=== PATIENT | male | born 1990 | race Hispanic/Latino ===

== ENCOUNTER 2018-01-12 21:03 | Emergency (ER) | payer SELFPAY ==
[2018-01-12 21:04] VITALS: BP 110/56; PULSE 102; RESP 20; TEMP 36.6; O2SAT 99; BMI 23.3
[2018-01-12] MEDS: Ondansetron 4 MG/2 ML Vial IV (21:48)
[2018-01-12] MEDS: 0.9% Normal Saline 1,000 ML 1000 ML IV (21:48)
[2018-01-12] MEDS: Dicyclomine 20 MG/2 ML Vial IM (21:48)
[2018-01-12 21:56] LABS: Absolute Lymphocyte Count 1.36 X10^3/ul (0.83-4.51); Absolute Neutrophil Count 10.8 X10^3/uL (2.0-7.7); Basophil# 0.02 X10^3/uL; Basophil% 0.2 % (0-1); Eosinophil# 0.05 X10^3/uL; Eosinophils% 0.4 % (0-5); Hematocrit 46.6 % (40-54); Hemoglobin 14.9 g/dl (13.0-16.5); Lymphocyte # 1.36 X10^3/ul (4.0); Lymphocyte % 10.5 % (19-41); Mean Corpuscular Volume 84.6 fL (80-94); Mean Platelet Vol. 10.1 fl (6.2-12.0); Monocyte# 0.76 X10^3/uL; Monocyte% 5.9 % (0-10); Neutrophil # 10.78 X10^3/uL (2.7-7.7); Neutrophil % 82.8 % (47-70); POSITIVE COUNT NO; POSITIVE DIFFERENTIAL NO; POSITIVE MORPHOLOGY NO; Platelet Count 239 K/mm3 (150-450); RBC Distribution Width CV 12.8 % (11.6-14.6); RBC Distribution Width SD 39.5 fl (35.1-43.9); Red Blood Count 5.51 M/mm3 (4.6-6.2)
[2018-01-12 22:04] LABS: Anion Gap 7 (5-15); BUN 10 mg/dL (7-18); BUN/Creat Ratio 9.8 RATIO (10-20); Calcium,Total 9.1 mg/dL (8.5-10.1); Chloride 105 mmol/L (98-107); Creatinine, Serum 1.02 mg/dL (0.70-1.30); EST Glomerular Filtration Rate 93 mL/min (>60); Est Glom Filt Rate - Afr Amer 113 mL/min (>60); Estimated Creatinine Clearance 94.63 ml/min; Glucose 122 mg/dL (74-106); Potassium 4.1 mmol/L (3.5-5.1); Sodium Level 141 mmol/L (136-145)
--- NOTE | 2018-01-12 22:50 | ED.VISSUMM ---
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 An hour after this exposure he developed nausea, vomiting, and diarrhea. Denies any abdominal pain. He has no throat pain. He has no respiratory symptoms. Patient has a picture of the bottle simply states acid cutlery grinder on it. The active ingredients are listed as decanoic acid, nonanoic acid, phosphoric acid, sulfuric acid, propionic acid. Physical Examination: Vital signs are unremarkable. Patient sitting in a bedside stool. He is no acute distress. Head neck examination is unremarkable. I do not appreciate any oral lesions. Heart is regular rate and rhythm. Lung sounds are clear. Abdomen is soft and nontender. Hypoactive bowel sounds are noted. Test Results: CBC was a white count 13.0 with 82% neutrophils. Chemistry studies unremarkable. Emergency Department Course and Treatment: Patient was given IV fluids, Zofran, and Bentyl. I did discuss the case with poison control. They state that the primary concern with inhalation would be respiratory symptoms or potential swain in the GI tract. They would have expected to see symptoms immediately, not delayed 1 hour after exposure. As long as labs are unremarkable patient can tolerate p.o. likelihood of having GI tract swain is unlikely. GI follow-up was recommended if he has any abdominal pain. On repeat evaluation patient's resting comfortably. He feels much improved. He is able to tolerate p.o. without difficulty. He will be given home pack of Zofran and Bentyl for tonight. Treatment Plan: [] Disposition: Discharge Impression: 1. Vomiting, improved 2. Diarrhea, improved This note was generated with [employer] dictation software. It may contain incorrect words, spelling, and punctuation that were not noted in review of the chart prior to signing ED Disposition - Plan for ED Patient: Chief Complaint: Occup Expose Referrals: Care Physician,No Primary [Primary Care Provider] -
--- NOTE | 2018-01-12 22:54 | ED.DCSUM_ITS ---
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 An hour after this exposure he developed nausea, vomiting, and diarrhea. Denies any abdominal pain. He has no throat pain. He has no respiratory symptoms. Patient has a picture of the bottle simply states acid child caregiver on it. The active ingredients are listed as decanoic acid, nonanoic acid, phosphoric acid, sulfuric acid, propionic acid. Physical Examination: Vital signs are unremarkable. Patient sitting in a bedside stool. He is no acute distress. Head neck examination is unremarkable. I do not appreciate any oral lesions. Heart is regular rate and rhythm. Lung sounds are clear. Abdomen is soft and nontender. Hypoactive bowel sounds are noted. Test Results: CBC was a white count 13.0 with 82% neutrophils. Chemistry studies unremarkable. Emergency Department Course and Treatment: Patient was given IV fluids, Zofran, and Bentyl. I did discuss the case with poison control. They state that the primary concern with inhalation would be respiratory symptoms or potential swain in the GI tract. They would have expected to see symptoms immediately, not delayed 1 hour after exposure. As long as labs are unremarkable patient can tolerate p.o. likelihood of having GI tract swain is unlikely. GI follow- up was recommended if he has any abdominal pain. On repeat evaluation patient's resting comfortably. He feels much improved. He is able to tolerate p.o. without difficulty. He will be given home pack of Zofran and Bentyl for tonight. Treatment Plan: [] Disposition: Discharge Impression: 1. Vomiting, improved 2. Diarrhea, improved This note was generated with [employer] dictation software. It may contain incorrect words, spelling, and punctuation that were not noted in review of the chart prior to signing ED Disposition - Plan for ED Patient: Chief Complaint: Occup Expose Referrals: Care Physician,No Primary [Primary Care Provider] -
--- NOTE | 2018-01-12 22:55 | ED.DEP ---
ED Disposition - Plan for ED Patient: Disposition: Home or Assisted Living Chief Complaint: Occup Expose Instructions: ED Inhalation Chemical Referrals: Amy Layne MD [COURTESY STAFF PHYSICIAN] - As Needed
--- NOTE | 2018-01-12 23:00 | ED.DEP ---
ED Disposition - Plan for ED Patient: Disposition: Home or Assisted Living Chief Complaint: Occup Expose Instructions: ED Inhalation Chemical Referrals: Alexi Xiong MD [STAFF PHYSICIAN] - As Needed
[2018-01-12] MEDS: Ondansetron ODT 4 MG Tablet PO (23:12)
[2018-01-12] MEDS: Dicyclomine 10 MG Capsule PO (23:12)
[2018-01-12 23:16] VITALS: BP 119/68; PULSE 65; RESP 16; O2SAT 99
== END 2018-01-12 23:17 | disposition home or self-care (01) ==
PROVIDERS: Emergency Provider Emergency Medicine
DX: R11.2 Nausea with vomiting, unspecified (principal); R19.7 Diarrhea, unspecified; Z77.098 Contact with and (suspected) exposure to other hazardous, chiefly nonmedicinal, chemicals
CPT/HCPCS: 80048; 85025; 96361; 96372; 96374; 99283; J7030; A4216; J2405